=== PATIENT | male | born 1980 | race African-American/Black ===

== ENCOUNTER 2021-07-16 03:54 | Emergency (ER) | payer MEDICAID ==
[~2021-07-16] VITALS: Ht 177.8 cm; Wt 68.0 kg
[2021-07-16] MEDS ORDERED: SODIUM CHLORIDE 0.9% 1,000 ML IV ONE (05:30)
[2021-07-16 05:36] LABS: BASOPHILS % 0.5 % (0.0-2.0); EOSINOPHILS % 2.3 % (0.0-5.0); HEMATOCRIT. 21.9 % (42.0-52.0); LYMPHOCYTES % 25.6 % (20.0-50.0); MEAN CORPUSCULAR HEMOGLOBIN 24.1 pg (28.0-32.0); MEAN CORPUSCULAR VOLUME 78.1 fL (80.0-94.0); MEAN PLATELET VOLUME 7.3 fl (7.4-10.4); NEUTROPHILS % 61.6 % (40.0-76.0); PLATELET 388 x1000/uL (130-400); RED BLOOD CELL COUNT 2.81 mill/uL (4.7-6.1)
[2021-07-16 05:50] LABS: HEMOGLOBIN. 6.8 g/dL (14.0-18.0)
[2021-07-16 06:01] LABS: CHLORIDE 111 mEq/L (98-107)
[2021-07-16] MEDS ORDERED: MORPHINE SULFATE 4 MG/ML CPJ (NOT FOR IM USE) IV STA (06:21)
[2021-07-16] MEDS ORDERED: ONDANSETRON HCL 4MG/2ML INJ IV STA (06:21)
[2021-07-16] MEDS ORDERED: IBUP-2029 MT (13:16)
[2021-07-16] MEDS ORDERED: CEPH500C2 MT (13:16)
[2021-07-16 14:07] VITALS: BP 100/56
[2021-07-16] MEDS ORDERED: IOHEXOL-350 100 ML BOTTLE ONE (14:24)
== END 2021-07-16 14:08 | disposition home or self-care (01) ==
LOC: ER 03:54 → ENRESERV 13:19 → CANBEDREQ 13:44 → ER 14:08
DX: D64.9 Anemia, unspecified (principal); R55 Syncope and collapse; Z98.890 Other specified postprocedural states; Z87.828 Personal history of other (healed) physical injury and trauma
CPT/HCPCS: 36415; 73552; 73560; 73706; 80053; 82962; 85025; 86850; 86900; 86901; 86920; 93005; 96361; 96374; 96375; 99285; J2270; J2405; J7030; Q9967; P9016